=== PATIENT | female | born 1985 | race Caucasian/White ===

== ENCOUNTER 2022-05-27 16:40 | Emergency (ER) | payer OTHER, SELFPAY ==
[2022-05-27 17:14] VITALS: BP 126/77; PULSE 86; RESP 18; TEMP 36.4; O2SAT 100
--- NOTE | 2022-05-27 18:05 | ED.SKABFB ---
HPI - Skin/Abscess/Foreign Bdy General Chief complaint: Skin/Abscess/Foreign Body Stated complaint: Rt Facial Irritation Time Seen by Provider: 05/27/22 17:55 Source: patient Mode of arrival: ambulatory Limitations: no limitations History of Present Illness HPI narrative: Patient presents today complaining of an 8 day history of itching to the right lateral forehead that has extended from her hairline down to her eyebrow. Since yesterday the itching has turned to burning in his extended behind her right eye. Denies any recent illness or trauma to the area. Denies any rash to this area as well. She currently rates her pain 07/08. Denies any vision changes or drainage from the eye. Related Data Allergies Allergy/AdvReac Type Severity Reaction Status Date / Time No Known Allergies Allergy Verified 05/27/22 16:53 Review of Systems Review of Systems: CONSTITUTIONAL: Denies body aches, fever, chills, or sweats. EYES: Denies visual changes, redness, or discharge. ENT: Denies rhinorrhea, congestion, sore throat, or otalgia. CARDIOVASCULAR: Denies chest pain, palpitations, or edema. RESPIRATORY: Denies cough or dyspnea. GASTROINTESTINAL: Denies abdominal pain, nausea, vomiting, or diarrhea. GENITOURINARY: Denies dysuria or hematuria. SKIN: + Forehead itching and burning MUSCULOSKELETAL: Denies back pain, joint pain, or myalgia. NEUROLOGIC: Denies headache, numbness, tingling, or weakness. PSYCH: Denies depression or anxiety. PMFSH Comments At time of signature, I have reviewed and agree with nursing past medical, surgical, social and family history unless otherwise noted. Please see nursing chart for further information. There is no relevant family history pertinent to the presenting complaint Exam Narrative: GENERAL: Well-appearing, well-nourished, and in no acute distress. HEAD: Normocephalic, atraumatic. patient localizes symptoms to the right lateral forehead extending from the hairline to the eyebrow. There is no rash, erythema, induration, edema. EYES: EOMI. PERRL. No redness or drainage. Conjunctivae normal. ENT: Mucous membranes pink and moist. NECK: Normal AROM. Supple. No lymphadenopathy. CHEST: No respiratory distress. EXTREMITIES: Normal range of motion. No edema. SKIN: Warm, dry, no rash. Capillary refill normal. Normal skin turgor. NEURO: No focal deficits. Alert and oriented x3. Gait steady. PSYCH: Normal affect. No signs of depression or anxiety. Course Course Level of Care: Express Care Visit Vital Signs Vital signs: Vital Signs Temperature 97.5 F L 05/27/22 17:14 Pulse Rate 86 05/27/22 17:14 Respiratory Rate 18 05/27/22 17:14 Blood Pressure 126/77 05/27/22 17:14 Pulse Oximetry 100 05/27/22 17:14 Oxygen Delivery Room Air 05/27/22 17:14 Temperature 97.5 F L 05/27/22 17:14 Pulse Rate 86 05/27/22 17:14 Respiratory Rate 18 05/27/22 17:14 Blood Pressure 126/77 05/27/22 17:14 Pulse Oximetry 100 05/27/22 17:14 Oxygen Delivery Room Air 05/27/22 17:14 Reviewed. Pt has been instructed to follow up with her PCP regarding her elevated blood pressure today. MDM - Skin/Abscess/Foreign Bdy MDM Narrative Medical decision making narrative: Possibility that this could be herpes zoster prodrome, but patient does not have a rash after 8 days of symptoms. Will treat her with a Medrol Dosepak and have her follow-up with her eye doctor because symptoms are, behind her eye. Patient agrees with plan, and follow-up with a PCP if symptoms do not resolve. Differential Diagnosis Differential diagnosis: Likely herpes zoster, cellulitis, eczema and contact dermatitis Critical Care Time Critical Care Time Critical Care Time: No Discharge Plan Discharge Clinical Impression: Itching Patient Disposition: Home, Self-Care Condition: Stable Additional Instructions: The cause of your symptoms is unclear. Please take the Medrol Dosepak as prescribed.
== END 2022-05-27 18:12 | disposition home or self-care (01) ==
PROVIDERS: Emergency Provider Nurse Practitioner
DX: L29.9 Pruritus, unspecified (principal)
CPT/HCPCS: 99213; G0463

== ENCOUNTER 2022-05-29 13:22 | Emergency (ER) | payer OTHER, SELFPAY ==
--- NOTE | ~2022-05-29 | CT_ITS ---
EXAMINATION: CT BRAIN W/O DATE: 05/29/2022 18:14 INDICATION: Headache TECHNIQUE: Computed tomography (CT) of the head was performed without intravenous contrast. The dose- length product was 605.33 mGy-cm. Automated exposure control and iterative reconstruction technique w ere employed. COMPARISON: No prior studies for comparison. FINDINGS: Normal brain parenchymal volume for age. Normal zhou-white differentiation. No acute intrac ranial hemorrhage, infarction, mass or mass effect. No ventriculomegaly or midline shift. Midline sagittal images demonstrate a normal corpus callosum, c raniovertebral junction and sella turcica. Basilar cisterns are patent. Paranasal sinuses and mastoids are pneumatized. No depressed skull fractures. IMPRESSION: 1. No acute intracranial abnormality. Reviewed, dictated and finalized at location A. [employer]
[2022-05-29 14:09] VITALS: BP 124/87; PULSE 89; RESP 18; TEMP 37.1; O2SAT 100
--- NOTE | 2022-05-29 18:17 | ED.HA ---
HPI - Headache General Chief Complaint: Headache Stated Complaint: weird sensation in head - after being on steriod Time Seen by Provider: 05/29/22 17:41 History of Present Illness HPI Narrative: Patient is a 37-year-old female who presents ER with right-sided facial pain and headache. Ongoing over the last week. Was started on Medrol Dosepak. Initially she had itching and burning that began at her hairline on the right side then moved down over her forehead and behind her right eye. It is improving with the steroid but she still having some aching headache that also feels like a wave going from her forehead down her right parietal region. No trauma. History of migraines as a child. No photophobia. Denies fevers chills or sweats. No sinus congestion or sore throat or productive cough. Related Data Allergies Allergy/AdvReac Type Severity Reaction Status Date / Time No Known Allergies Allergy Verified 05/27/22 16:53 Review of Systems Review of Systems: All systems reviewed & are unremarkable except as noted in HPI and below Constitutional: Constitutional: Denies chills, Denies fatigue and Denies fever(s) Eyes: Eyes: Denies change in vision and Denies photophobia ENT: Denies nasal congestion and Denies sore throat Cardiovascular: Cardiovascular: Denies chest pain, Denies rapid heart rate and Denies radiating jaw, neck or arm pain Gastrointestinal: Gastrointestinal: Denies nausea and Denies vomiting Neurologic: Denies dizziness, Denies syncope, Reports headache(s) and Denies numbness PMFSH Past Medical History Medical History (Updated 05/29/22 @ 19:21 by Darien Trevino MD) Migraines Surgical History Surgical History (Updated 05/29/22 @ 18:19 by Darien Trevino MD) No history of previous surgery Social History Social History (Updated 05/29/22 @ 18:19 by Darien Trevino MD) Smoking status: Never smoker Exam Narrative: GENERAL: Well-appearing, well-nourished, and in no acute distress. HEAD: Normocephalic, atraumatic. EYES: PERRL and EOMI. ENT: Mucous membranes moist. TMs normal bilaterally. Ear canals free of cerumen or rash. CHEST: Clear to auscultation. No respiratory distress. HEART: Regular rate and rhythm. Normal peripheral pulses. EXTREMITIES: Normal range of motion. No edema. SKIN: Warm, dry, no rash. NEURO: No focal deficits. No upper extremity drift. Cranial nerves II through XII intact. Alert and oriented x3. PSYCH: Normal mood and affect. Course Course Emergency Course: Patient resting comfortably. Headache resolved with Toradol. Imaging negative. Patient may be having migraine variant. Recommend follow-up with PCP. Discharge home. Vital Signs Vital signs: Vital Signs Temperature 98.8 F 05/29/22 14:09 Pulse Rate 89 05/29/22 14:09 Respiratory Rate 18 05/29/22 14:09 Blood Pressure 124/87 05/29/22 14:09 Pulse Oximetry 100 05/29/22 14:09 Oxygen Delivery Room Air 05/29/22 14:09 Temperature 98.8 F 05/29/22 14:09 Pulse Rate 89 05/29/22 14:09 Respiratory Rate 18 05/29/22 14:09 Blood Pressure 124/87 05/29/22 14:09 Pulse Oximetry 100 05/29/22 14:09 Oxygen Delivery Room Air 05/29/22 14:09 Discharge Plan Discharge Clinical Impression: Headache, Facial paresthesia Patient Disposition: Home, Self-Care Condition: Stable Instructions: Paresthesia (ED), General Headache (ED) Additional Instructions: Return the ER if you have fever over 100.4 ?F, you cannot keep down food or water, you lose consciousness, you have additional concerns. Prescriptions: No Action methylprednisolone [Medrol (Sarabjit)] 4 mg tablets,dose pack See Rx Instructions .ROUTE .COMPLEX Qty: 21 0RF Rx Instructions: orally per package directions Follow-up/Referrals: Mani,Leanne Andrews MD [Primary Care Provider] - 1 Week
[2022-05-29] MEDS: SODIUM CHLORIDE 0.9% IV 1,000 ML 999 ML IV CONT (18:18)
[2022-05-29] MEDS: KETOROLAC 30 MG/ML VIAL (*BKC) IV PUSH (18:18)
[2022-05-29 19:35] VITALS: BP 124/84; PULSE 80; RESP 16; O2SAT 100
== END 2022-05-29 19:40 | disposition home or self-care (01) ==
PROVIDERS: Emergency Provider Emergency Medicine; PCP Family Medicine Sports Medicine
DX: R51.9 Headache, unspecified (principal); R20.2 Paresthesia of skin
CPT/HCPCS: 70450; 96361; 96374; 99284; J1885; J7030